=== PATIENT | female | born 1950 | race Caucasian/White ===

== ENCOUNTER 2024-08-16 11:16 | Emergency (ER) | payer OTHER ==
[2024-08-16] MEDS ORDERED: ACETAMINOPHEN INJECTION 100 ML ONE (12:03)
[2024-08-16] MEDS: ACETAMINOPHEN 1000 MG/100 ML BAG IVPB ONE (12:14)
[2024-08-16 12:35] LABS: BASO % 0.3 % (0-2.0); EOS % 1.2 % (0-4.5); HEMATOCRIT 38.5 % (32.4-45.2); MCH 29.5 pg (25.7-33.7); MCHC 33.8 g/dl (32.0-36.0); MEAN CELL VOLUME 87.3 fl (80-96); MEAN PLT VOLUME 7.8 fl (7.5-11.1); MONO % 6.3 % (3.8-10.2); NEUT % 62.2 % (42.8-82.8); PLATELET COUNT 236 10^3/uL (134-434); RBC 4.41 M/mm3 (3.60-5.2); RDW 13.1 % (11.6-15.6); WHITE BLOOD COUNT 6.3 K/mm3 (4.0-10.0)
[2024-08-16 12:40] VITALS: TEMP 98.3; BMI 29.9
[2024-08-16 12:47] LABS: INR 0.99 (0.83-1.09); PROTHROMBIN TIME (PATIENT) 10.8 SEC (9.7-13.0)
[2024-08-16 12:58] LABS: POTASSIUM 4.3 mmol/L (3.5-5.1)
[2024-08-16 13:00] LABS: CALCIUM 9.4 mg/dL (8.5-10.1)
[2024-08-16 13:01] LABS: BLOOD UREA NITROGEN 15.6 mg/dL (7-18)
[2024-08-16 13:04] LABS: CREATININE 0.7 mg/dL (0.55-1.3)
[2024-08-16 13:06] LABS: BILIRUBIN,TOTAL 0.5 mg/dL (0.2-1)
[2024-08-16 14:12] VITALS: RESP 18
[2024-08-16] MEDS ORDERED: KETOROLAC TROMETHAMINE 15 MG/ML VIAL ONE (14:21)
[2024-08-16] MEDS: KETOROLAC TROMETHAMINE 15 MG/ML VIAL IVPUSH ONE (14:27)
[2024-08-16 16:09] VITALS: BP 131/67; PULSE 65
== END 2024-08-16 16:09 | disposition home or self-care (01) ==
LOC: JER 11:16
PROC: 3E033GC Introduction of Other Therapeutic Substance into Peripheral Vein, Percutaneous Approach (ICD-10-PCS; principal; 2024-08-16)
PROC: 3E033GC Introduction of Other Therapeutic Substance into Peripheral Vein, Percutaneous Approach (ICD-10-PCS; 2024-08-16)
DX: R07.81 Pleurodynia (principal)
CPT/HCPCS: 36415; 70450-TC; 71046-TC-FY; 71260-TC; 72125-TC; 72128-TC; 72131-TC; 74177-TC; 80053; 85025; 85610; 85730; 86850; 86900; 86901; 93005; 93010; 96374; 96375; 99285-25; J0131